=== PATIENT | male | born 1985 | race Caucasian/White ===

== ENCOUNTER 2017-11-13 21:02 | Emergency (ER) | payer BC, OTHER ==
[~2017-11-13] VITALS: Ht 180.3 cm; Wt 173.8 kg
[2017-11-13 21:14] VITALS: BP 150/96; PULSE 89; TEMP 36.8; O2SAT 96; Ht 180.3 cm; Wt 173.8 kg
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
== END 2017-11-13 21:55 | disposition home or self-care (01) ==
LOC: C.EDB 21:04 → C.EDC 21:55
DX: S06.0X0A Concussion without loss of consciousness, initial encounter (principal); R03.0 Elevated blood-pressure reading, without diagnosis of hypertension; Z87.891 Personal history of nicotine dependence; W20.8XXA Other cause of strike by thrown, projected or falling object, initial encounter; Y93.H9 Activity, other involving exterior property and land maintenance, building and construction